=== PATIENT | male | born 1935 | race Caucasian/White ===

== ENCOUNTER 2019-11-15 14:07 | Emergency (ER) | payer BC, OTHER ==
[~2019-11-15] VITALS: Ht 177.8 cm; Wt 96.2 kg
--- NOTE | 2019-11-15 14:07 | NUR ---
BROUGHT BACK TO BED #1 AND TRIAGED. REPORT GIVEN TO GAYLA
[2019-11-15 14:10] VITALS: BP_SYST 132
--- NOTE | 2019-11-15 16:05 | NUR ---
PATIENT PRESENTS TO THE ER WITH WORSING RIGHT LOWER LEG SWELLING AND PAIN FOR THE PAST MONTH; NO TRAUMA, NO OTHER REMARKABLE S/S; VENOUS STASIS NOTED BILATERALLY BOTH LOWER EXTREMITIES
--- NOTE | 2019-11-15 16:20 | NUR ---
REASSESSMENT BY ERMD; ACI GIVEN AND PATIENT INDICATED FULL UNDERSTANDING; DISCHARGED AMBULATORY WITH WALKER; IMPROVED
[2019-11-15 16:36] VITALS: BP_SYST 156
== END 2019-11-15 16:36 | disposition home or self-care (01) ==
LOC: SED 14:07
DX: M79.604 Pain in right leg (principal); M79.605 Pain in left leg; Z88.0 Allergy status to penicillin; Z88.5 Allergy status to narcotic agent; Z88.6 Allergy status to analgesic agent
CPT/HCPCS: 93971; 99284